=== PATIENT | male | born 1935 | race Caucasian/White ===

== ENCOUNTER 2017-10-02 09:09 | Outpatient (CLI) | payer OTHER ==
[2013-03-10 12:41] VITALS: BP 135/64
[2017-10-02 09:58] LABS: eGFR (African) > 60; eGFR (Non-African) > 60
[2017-10-02 16:40] LABS: T3-UPTAKE 36.1 % (25.4-41.2)
== END 2017-10-02 09:10 ==
LOC: LAB 09:09
PROVIDERS: ATTEND Family Medicine
DX: I10 Essential (primary) hypertension (principal); E78.5 Hyperlipidemia, unspecified; R73.09 Other abnormal glucose; E03.9 Hypothyroidism, unspecified
CPT/HCPCS: 36415; 80053; 80061; 83036; 84436; 84479

== ENCOUNTER 2018-10-15 09:19 | Outpatient (CLI) | payer OTHER ==
[2013-03-10 12:41] VITALS: BP 135/64
[2018-10-15 10:42] LABS: eGFR (Non-African) > 60
== END 2018-10-15 09:20 ==
LOC: LAB 09:19
PROVIDERS: ATTEND Family Medicine
DX: I10 Essential (primary) hypertension (principal); E78.5 Hyperlipidemia, unspecified; E03.9 Hypothyroidism, unspecified; R73.9 Hyperglycemia, unspecified
CPT/HCPCS: 36415; 80053; 80061; 83036; 84439; 84443; 84481

== ENCOUNTER 2019-02-06 15:56 | Inpatient (IN) | payer OTHER ==
[2019-02-06] MEDS ORDERED: IPRATROPIUM/ALBUTEROL SULFATE 3 ML AMPUL.NEB NEB ONE ×2 (16:05→16:06)
[2019-02-06] MEDS ORDERED: methylPREDNISolone SOD SUCC 125 MG/2 ML VIAL IVP ONE (16:08)
[2019-02-06 16:49] LABS: BASOPHILS % 1.4 (0.0-1.5); EOSINOPHILS % 0.7 % (0.0-6.8); MEAN CORPUSCULAR HEMOGLOBIN 31.1 pg (28.0-34.0); MONOCYTES % 8.1 % (0.0-11.0); NEUTROPHILS # 5.4 # k/uL (1.4-7.7)
[2019-02-06 16:56] LABS: eGFR (Non-African) 56
--- NOTE | 2019-02-06 17:06 | ED Physician Documentation ---
General Adult - HISTORIAN Historian: patient - HPI Stated Complaint: resp distress Chief Complaint: Upper Respiratory Symptoms Onset: days ago (4) Timing: still present, worse since Severity: moderate Further Comments: yes (Per daughter he was running a fever Saturday and Sat. Then started to have increasing shortness of air in last 24 hours. She states today he came to her saying his right chest was hurting and he was more short on air and she noticed his fingers to be purple and he was shaking. She does not feel at that time he had a fever. She states he has been not taking his b/p med due to "low" blood pressure since fever. She states he did take the med yesterday and today. He takes a albuterol inhaler as needed and only has issues with his thyroid.) - ROS CONST: fever, weakness EYES/ENT: nasal drainage CVS/RESP: chest pain (right sided ) GI/: none MS/SKIN/LYMPH: none NEURO/PSYCH: denies: headache, fainting, numbness, difficulty with speech - PAST HX Past History: COPD, hypertension Immunizations: UTD Allergies/Adverse Reactions: Allergies Allergy/AdvReac Type Severity Reaction Status Date / Time Tetanus Vaccines and Toxoid Allergy Mild Verified 02/06/19 16:51 [Tetanus] tetanus toxoid, adsorbed Allergy Verified 02/06/19 16:51 Home Medications: Ambulatory Orders Medication Instructions Recorded Aspirin [Jaylen] 81 mg PO QD 03/09/13 - SOCIAL HX Smoking History: non-smoker Alcohol Use: none Drug Use: none - FAMILY HX Family History: Yes (CHF - Mother ) - VITAL SIGNS Vital Signs: Vital Signs Temp Pulse Resp BP Pulse Ox 135/64 03/10/13 12:40 - REVIEWED ASSESSMENTS Nursing Assessment Reviewed: Yes Vitals Reviewed: Yes Progress - Progress Progress: 1615: after non rebreather mask applied decrease in work of breathing. DG 1630: Post neb - decrease work of breathing - he reports a decrease in shortness of air. Non rebreather decreased to 10 DG 1700: continues to state he is feeling better. Pain in chest is improved and he is feeling less short of air. DG 1730: talking in room with daughter. Discussed current findings and plan - they are agreeable DG 1820: discussed case with gas meter installer helper joel Ham [employer] BELT BRANDER will admit DG 1830: Discussed code status and he wants CPR but no mechanical ventilation and daughter has paper and is in charge in the event he cannot say DG ED Results Lab/Radiology - Lab Results Lab Results: Lab Results 02/06/19 02/06/19 02/06/19 16:20 16:20 16:20 WBC 8.00 K/ul K/ul (4.00-12.00) RBC 5.32 M/ul H M/ul (3.90-5.20) Hgb 16.6 g/dL g/dL (12.0-18.0) Hct 50.0 % % (37.0-53.0) MCV 94.0 fl fl (80.0-100.0) MCH 31.1 pg pg (28.0-34.0) MCHC 33.1 g/dL g/dL (30.0-36.0) RDW 13.6 % % (11.3-14.3) Plt Count 177 K/mm3 K/mm3 (130-400) Neut % (Auto) 66.7 % % (39.0-79.0) Lymph % (Auto) 23.1 % % (16.0-50.0) [place] % (Auto) 8.1 % % (0.0-11.0) Eos % (Auto) 0.7 % % (0.0-6.8) Baso % (Auto) 1.4 (0.0-1.5) Neut # (Auto) 5.4 # k/uL # k/uL (1.4-7.7) Lymph # (Auto) 1.9 # k/uL # k/uL (0.6-4.0) [place] # (Auto) 0.7 # k/uL # k/uL (0.0-0.9) Eos # (Auto) 0.1 # k/uL # k/uL (0.0-0.6) Baso # (Auto) 0.1 # k/uL # k/uL (0.0-0.5) D-Dimer 3087 ng/mL H ng/mL (6.0-682) Sodium 141 mmol/L mmol/L (136-145) Potassium 4.7 mmol/L mmol/L (3.5-5.1) Chloride 101 mmol/L mmol/L (98-107) Carbon Dioxide 27 mmol/L mmol/L (22-30) BUN 30 mg/dL H mg/dL (9-20) Creatinine 1.29 mg/dL H mg/dL (0.66-1.25) Est GFR ( Amer) > 60 (60 - ) Est GFR (Non-Af Amer) 56 L (60 - ) Glucose 91 mg/dL mg/dL (74-106) Calcium 8.5 mg/dL mg/dL (8.4-10.2) Total Bilirubin 0.6 mg/dL mg/dL (0.2-1.3) AST 45 U/L U/L (15-46) ALT 19 U/L U/L (13-69) Alkaline Phosphatase 119 U/L U/L (38-126) Creatine Kinase 86 U/L U/L (55-170) Troponin I < 0.03 ng/mL L ng/mL (0.03-0.06) NT-Pro-B Natriuret Pep 4642.9 pg/mL H pg/mL (15.0-450.0) Total Protein 7.3 g/dL g/dL (6.3-8.2) Albumin 4.1 g/dL g/dL (3.5-5.0) - Radiology Radiology Impressions: Portable chest History: Short of breath Portable chest dated February 06, 2019 demonstrates cardiomegaly. Pulmonary vascularity is normal. There is no confluent infiltrate or pleural effusion. Impression: Cardiomegaly. No active disease. Electronically signed on Feb 06, 2019 4:59:49 PM [employer] by: Columba Wagner TECHNIQUE: 2.5 mm contiguous axial images of the chest with contrast. Sagittal and coronal reconstructions. FINDINGS: The pulmonary artery is dilated to 3.9 cm. The aortic arch is tortuous and calcified. There is no hilar or mediastinal mass. No pulmonary emboli are identified. A calcified left hilar lymph nodes. Coronary artery calcification is present. The great vessels are calcified. There is a right upper quadrant nodular density possibly adrenal gland measuring 3.4 cm. The heart is enlarged. Lung window show emphysema. Scattered fibrosis is present. There is bilateral bronchitis. A left lower lobe 4 mm nodule is present. Some infiltrate is present in the right middle lobe There is thoracic spondylosis. Kyphosis is present. IMPRESSION: Dilated pulmonary artery possible pulmonary hypertension Centrilobular emphysema. Bilateral bronchitis Pleural based infiltrate in the right middle lobe Bilateral bronchitis 4 mm left lower lobe nodular density Particularly infiltrate in both lungs rightest in the bases Right retroperitoneal 3.4 cm oval density possibly adrenal nodule. CT Abdomen/pelvis is suggested for further evaluation Electronically signed on Feb 06, 2019 6:12:55 PM [employer] by: Twin Guzman - Orders Orders: ED Orders Category Date Time Status Assess pulse oximetry Q1H Care 02/06/19 16:06 Active IV Started NOW Care 02/06/19 16:07 Active CHEST 1VIEW [RAD] Stat Exams 02/06/19 Ordered ARTERIAL BLOOD GAS Stat Lab 02/06/19 16:31 Ordered BLOOD CULTURE Stat Lab 02/06/19 Ordered BNP [NT-proBNP] Stat Lab 02/06/19 16:20 Completed CBC/PLATELET/DIFF Routine Lab 02/06/19 16:20 Completed CMP Routine Lab 02/06/19 16:20 Completed CREATINE KINASE Routine Lab 02/06/19 16:20 Completed D DIMER Stat Lab 02/06/19 16:20 Completed INFLUENZA A&B Stat Lab 02/06/19 16:32 Ordered PT-INR Routine Lab 02/06/19 Ordered TROPONIN I (cTnI) Stat Lab 02/06/19 16:20 Completed Ipratropium/Albuterol Sulfate [Duoneb] Med 02/06/19 16:05 Discontinued 3 ml NEB .STK-MED ONE Ipratropium/Albuterol Sulfate [Duoneb] Med 02/06/19 16:06 Discontinued 3 ml NEB NOW ONE methylPREDNISolone SOD SUCC [Solu-MEDROL] Med 02/06/19 16:08 Discontinued 125 mg IVP NOW ONE EKG WITH COMPARISON Stat Ther 02/06/19 Ordered General Adult Physical Exam - PHYSICAL EXAM GENERAL APPEARANCE: severe distress EENT: ENT inspection normal, dry mucous membranes NECK: normal inspection RESPIRATORY: wheezes, other (resp distress - ) CVS: reg rate & rhythm, heart sounds normal ABDOMEN: soft, normal bowel sounds, no distension BACK: normal inspection, no CVA tenderness SKIN: warm/dry EXTREMITIES: non-tender, normal range of motion, no edema NEURO: oriented X3 Discharge Clincal Impression: Influenza B Pneumonia Qualifiers: Pneumonia type: due to unspecified organism Laterality: right Lung location: lower lobe of lung Qualified Code(s): J18.1 - Lobar pneumonia, unspecified organism CHF (congestive heart failure) Qualifiers: Heart failure type: unspecified Heart failure chronicity: unspecified Qualified Code(s): I50.9 - Heart failure, unspecified Referrals: Beto Orlando MD [Primary Care Provider] - 2 Days Condition: Fair Disposition: 09 ADMITTED INPATIENT Decision to Admit: [id number] Date of Decison to Admit: 02/06/19 Decision Time: 18:29
[2019-02-06] MEDS ORDERED: 0.9 % SODIUM CHLORIDE 1,000 ML IV ONE (18:25)
[2019-02-06] MEDS ORDERED: cefTRIAXone SODIUM 1 GM in 0.9 % SODIUM CHLORIDE(MINIBAG+ 50 ML IV ONE (18:25)
[2019-02-06 20:07] VITALS: BMI 26.5
[2019-02-06] MEDS: IPRATROPIUM/ALBUTEROL SULFATE 3 ML AMPUL.NEB NEB SCH ×2 (22:30→23:02)
[2019-02-06] MEDS ORDERED: AZITHROMYCIN 500 MG VIAL IV ONE (22:43)
[2019-02-06] MEDS ORDERED: 0.9 % SODIUM CHLORIDE 250 ML IV ONE (22:44)
[2019-02-06] MEDS: FUROSEMIDE 20 MG/2 ML VIAL IVP SCH (23:01)
[2019-02-06] MEDS: POTASSIUM CHLORIDE 10 MEQ TABLET.ER PO SCH (23:05)
[2019-02-06] MEDS: 0.9 % SODIUM CHLORIDE 1,000 ML IV SCH (23:05)
[2019-02-06] MEDS: AZITHROMYCIN 500 MG in 0.9 % SODIUM CHLORIDE 250 ML IV SCH (23:06)
[2019-02-07] MEDS: IPRATROPIUM/ALBUTEROL SULFATE 3 ML AMPUL.NEB NEB SCH ×6 (02:09→20:39)
--- NOTE | 2019-02-07 05:33 | Diagnostic Imaging Report ---
MACKENZIE CROW [facility] [address] [facility] [address] [place], [place]. [address] Report Submission Date: Feb 06, 2019 4:59:49 PM [employer] Patient Study Name: LUC TIM Date: Feb 06, 2019 4:06:05 PM [employer] Modality Type: DX Gender: M Description: CHEST 1VIEW : 34 Institution: [facility] Physician: MACKENZIE CROW Portable chest History: Short of breath Portable chest dated February 06, 2019 demonstrates cardiomegaly. Pulmonary vascularity is normal. There is no confluent infiltrate or pleural effusion. Impression: Cardiomegaly. No active disease. Electronically signed on Feb 06, 2019 4:59:49 PM [employer] by: Columba CASTRO
--- NOTE | 2019-02-07 05:34 | Diagnostic Imaging Report ---
MACKENZIE CROW [facility] [address] [facility] [address] [place], [place]. [address] Report Submission Date: Feb 06, 2019 6:12:55 PM CREDIT UNION TELLER Patient Study Name: LUC TIM Date: Feb 06, 2019 5:35:10 PM [employer]EDIT UNION TELLER Modality Type: CT\SR Gender: M Description: CT PE CHEST : 34 Institution: [place] [facility] Physician: MACKENZIE CROW CT chest with contrast Date of study: February 06, 2019 CLINICAL HISTORY: CT CHEST W/ PE PROTOCOL. SOA TODAY AND RT SIDED CP, PT HAD DIFFICULT TIME HOLDING BREATH (Hx) / ITS.REASON Shortness of breath and Right chest pain Note time : 02/06/2019 6:55:37 PM User : Helena Cosme CT CHEST W/ PE PROTOCOL. SOA TODAY AND RT SIDED CP, PT HAD DIFFICULT TIME HOLDING BREATH (DICOM Hx) TECHNIQUE: 2.5 mm contiguous axial images of the chest with contrast. Sagittal and coronal reconstructions. FINDINGS: The pulmonary artery is dilated to 3.9 cm. The aortic arch is tortuous and calcified. There is no hilar or mediastinal mass. No pulmonary emboli are identified. A calcified left hilar lymph nodes. Coronary artery calcification is present. The great vessels are calcified. There is a right upper quadrant nodular density possibly adrenal gland measuring 3.4 cm. The heart is enlarged. Lung window show emphysema. Scattered fibrosis is present. There is bilateral bronchitis. A left lower lobe 4 mm nodule is present. Some infiltrate is present in the right middle lobe There is thoracic spondylosis. Kyphosis is present. IMPRESSION: Dilated pulmonary artery possible pulmonary hypertension Centrilobular emphysema. Bilateral bronchitis Pleural based infiltrate in the right middle lobe Bilateral bronchitis 4 mm left lower lobe nodular density Particularly infiltrate in both lungs rightest in the bases Right retroperitoneal 3.4 cm oval density possibly adrenal nodule. CT Abdomen/pelvis is suggested for further evaluation Electronically signed on Feb 06, 2019 6:12:55 PM CR[employer] UNION TELLER by: Twin CASTRO
[2019-02-07] MEDS ORDERED: LEVOTHYROXINE SODIUM 50 MCG TABLET ONE (06:04)
[2019-02-07] MEDS: methylPREDNISolone SOD SUCC 40 MG/ML VIAL IVP SCH ×3 (06:13→20:22)
[2019-02-07] MEDS: 0.9 % SODIUM CHLORIDE 1,000 ML IV SCH ×2 (06:13→19:58)
[2019-02-07] MEDS: LEVOTHYROXINE SODIUM 100 MCG TABLET PO SCH (06:15)
[2019-02-07 07:18] LABS: eGFR (Non-African) > 60
[2019-02-07 07:19] LABS: BASOPHILS % 0.7 (0.0-1.5); EOSINOPHILS % 0.9 % (0.0-6.8); MEAN CORPUSCULAR HEMOGLOBIN 31.4 pg (28.0-34.0); MONOCYTES % 2.7 % (0.0-11.0); NEUTROPHILS # 5.2 # k/uL (1.4-7.7)
--- NOTE | 2019-02-07 07:53 | History and Physical Report ---
History of Present Illnes - History of Present Illness Reason for Visit: Pneumonia, COPD History of Present Illness: Patient is an 83-year-old male that presented to the ER yesterday evening with severe resp. distress. Per ER provider; "Per daughter he was running a fever Saturday and Sat. Then started to have increasing shortness of air in last 24 hours. She states today he came to her saying his right chest was hurting and he was more short on air and she noticed his fingers to be purple and he was shaking. She does not feel at that time he had a fever. She states he has been not taking his b/p med due to "low" blood pressure since fever. She states he did take the med yesterday and today. He takes a albuterol inhaler as needed and only has issues with his thyroid." I spoke with daughter on the phone and she reiterated what was stated. She stated that he does not receive the flu or pneumonia vaccine. He is independent and even drives. He lives with daughter and son-in-law. This morning talking with patient he states that he is feeling much better than he did yesterday- he states "I thought I was going to - I couldn't breathe". He states that he has been feeling bad off/on for a week but yesterday he had went to [employer] and he said he did not think he was going to make it home. He got home and laid down for awhile- he got up and tried to walk from his room to his kitchen and he got very dizzy and lightheaded- he felt like he could not breathe. He finally let his daughter bring him to the ER. 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) Endocrine: Hypothyroidism - Past Surgical History Past Surgical History: Appendectomy, Cataract Removal, Other (hydrocele, left inguinal repair) - Past Family History Mother Family History: Father Family History: - Past Social History Smoke: <1 pack per day (has not smoke in a week) Alcohol: Rare Drugs: None Lives: With Family Domestic Violence: Negative - Health Maintenance Health Maintenance: denies: Tetanus, Pneumococcal Vaccine Influenza Vaccine: Patient Refused Pneumonia Vaccine: No (Refuses) Resuscitation Status: Resusciation Status Resuscitation Status No Intubation/Mech Vent Review of Systems - Review of Systems Constitutional: Fever, Chills, Weakness Eyes: negative: conjunctivae inflammation, eyelid inflammation ENT: Nose Congestion. negative: Ear Pain, Ear Discharge, Throat Pain Respiratory: Cough, Shortness of Breath, SOB with Excertion Cardiovascular: Light Headedness. negative: Chest Pain Gastrointestinal: negative: Nausea, Vomiting, Abdominal Pain Genitourinary: negative: Dysuria Musculoskeletal: negative: Back Pain Skin: negative: Rash Neurological: Weakness - Medications/Allergies Allergies/Adverse Reactions: Allergies Allergy/AdvReac Type Severity Reaction Status Date / Time Tetanus Vaccines and Toxoid Allergy Mild Verified 02/06/19 16:51 [Tetanus] tetanus toxoid, adsorbed Allergy Verified 02/06/19 16:51 Current Inpatient Medications: Current Inpatient Medications Albuterol/Ipratropium (Duoneb) 3 ml NEB Q4 [facility] Last Admin: 02/07/19 05:13 Dose: 3 ml Aspirin (Jaylen) 81 mg PO DAILY [facility] Furosemide (Lasix) 20 mg IVP QD [facility] Last Admin: 02/06/19 23:01 Dose: 20 mg Azithromycin 500 mg/ Sodium (Chloride) 250 mls @ 125 mls/hr IV Q24H [facility] Stop: 02/16/19 19:59 Last Admin: 02/06/19 23:06 Dose: 125 mls/hr Ceftriaxone Sodium 1 gm/ (Sodium Chloride) 50 mls @ 100 mls/hr IV DAILY [facility] Sodium Chloride (Normal Saline) 1,000 mls @ 80 mls/hr IV Q10H [facility] Last Admin: 02/07/19 06:13 Dose: 80 mls/hr Levothyroxine Sodium (Synthroid) 150 mcg PO 0700 [facility] Last Admin: 02/07/19 06:15 Dose: 150 mcg Methylprednisolone Sodium Succinate (Solu-Medrol) 80 mg IVP Q12 [facility] Last Admin: 02/07/19 06:13 Dose: 80 mg Potassium Chloride (Klor-Con 10) 10 meq PO DAILY [facility] Last Admin: 02/06/19 23:05 Dose: 10 meq Exam - Exam Vital Signs: Vital Signs (72 hours) 02/06/19 02/06/19 02/06/19 16:01 17:01 18:04 Temperature 99.6 F Pulse Rate Pulse Rate [ 78 67 65 Apical] Pulse Rate [ Right] Respiratory 28 H 31 H 28 H Rate Blood Pressure 120/82 132/67 132/60 [Left Arm] Blood Pressure [Right Arm] O2 Sat by Pulse 82 L 100 100 Oximetry 02/06/19 02/06/19 02/06/19 18:06 18:30 18:49 Temperature Pulse Rate 66 Pulse Rate [ 72 Apical] Pulse Rate [ Right] Respiratory 22 Rate Blood Pressure [Left Arm] Blood Pressure [Right Arm] O2 Sat by Pulse 89 L 99 95 Oximetry 02/06/19 02/06/19 02/06/19 19:00 19:45 19:49 Temperature 97.7 F Pulse Rate 70 Pulse Rate [ 66 Apical] Pulse Rate [ 72 Right] Respiratory 23 22 Rate Blood Pressure 145/70 [Left Arm] Blood Pressure 166/93 [Right Arm] O2 Sat by Pulse 95 95 Oximetry 02/06/19 02/06/19 02/06/19 19:59 20:00 20:33 Temperature 97.7 F Pulse Rate 65 64 Pulse Rate [ Apical] Pulse Rate [ 72 Right] Respiratory 22 Rate Blood Pressure [Left Arm] Blood Pressure 166/93 [Right Arm] O2 Sat by Pulse 95 95 Oximetry 02/06/19 02/06/19 02/06/19 20:34 21:00 22:00 Temperature 97.2 F L Pulse Rate Pulse Rate [ Apical] Pulse Rate [ 62 Right] Respiratory 24 Rate Blood Pressure [Left Arm] Blood Pressure 152/93 [Right Arm] O2 Sat by Pulse 95 94 96 Oximetry 02/06/19 02/06/19 02/06/19 22:33 22:34 23:00 Temperature Pulse Rate 71 Pulse Rate [ Apical] Pulse Rate [ Right] Respiratory Rate Blood Pressure [Left Arm] Blood Pressure [Right Arm] O2 Sat by Pulse 96 96 Oximetry 02/06/19 02/07/19 02/07/19 23:59 00:00 00:56 Temperature 97.2 F L Pulse Rate 70 Pulse Rate [ Apical] Pulse Rate [ 62 Right] Respiratory 24 Rate Blood Pressure 145/70 [Left Arm] Blood Pressure 152/93 [Right Arm] O2 Sat by Pulse 97 97 Oximetry 02/07/19 02/07/19 02/07/19 01:54 02:00 02:45 Temperature 96.9 F L Pulse Rate 60 Pulse Rate [ Apical] Pulse Rate [ 68 Right] Respiratory 18 Rate Blood Pressure [Left Arm] Blood Pressure 151/55 [Right Arm] O2 Sat by Pulse 96 95 95 Oximetry 02/07/19 02/07/19 02/07/19 02:47 02:48 03:19 Temperature 96.9 F L Pulse Rate Pulse Rate [ Apical] Pulse Rate [ 68 68 Right] Respiratory 18 18 Rate Blood Pressure 145/70 [Left Arm] Blood Pressure 151/55 [Right Arm] O2 Sat by Pulse 94 Oximetry 02/07/19 02/07/19 02/07/19 03:20 03:21 05:27 Temperature Pulse Rate 76 Pulse Rate [ Apical] Pulse Rate [ Right] Respiratory Rate Blood Pressure [Left Arm] Blood Pressure [Right Arm] O2 Sat by Pulse 94 96 Oximetry 02/07/19 02/07/19 05:28 05:35 Temperature 97.7 F Pulse Rate 65 Pulse Rate [ Apical] Pulse Rate [ 59 L Right] Respiratory 28 H Rate Blood Pressure [Left Arm] Blood Pressure 158/75 [Right Arm] O2 Sat by Pulse 96 Oximetry General: Alert, Oriented to Person, Oriented to Place, Oriented to Time, Cooperative, Moderate distress HEENT: PERRLA, Mouth Mucous membr. moist/[place], Nose Mucous membr. moist/[place] Neck: Normal Range of Motion Carotids: NO bruit Lungs: Respiratory Distress, Accessory Muscle Use, Decreased Air Movement Cardiovascular: Regular rate, Normal S1, Normal S2 Peripheral Edema: NOne Peripheral Pulses: 2+ Abdomen: Normal bowel sounds, Soft, No tenderness Integumentary: Warm, Dry, Pale Extremities: No edema, Normal pulses, No tenderness/swelling Neurological: Normal speech, Strength Equal Bilat, Sensation intact Psych/Mental Status: Mental status NL, Mood NL, Appropriate Affect (Very pleasant) - Laboratory Results Laboratory Results: Laboratory Results 02/06/19 02/06/19 02/06/19 16:20 16:20 16:20 WBC 8.00 RBC 5.32 H Hgb 16.6 Hct 50.0 MCV 94.0 MCH 31.1 MCHC 33.1 RDW 13.6 Plt Count 177 Neut % (Auto) 66.7 Lymph % (Auto) 23.1 [place] % (Auto) 8.1 Eos % (Auto) 0.7 Baso % (Auto) 1.4 Neut # (Auto) 5.4 Lymph # (Auto) 1.9 [place] # (Auto) 0.7 Eos # (Auto) 0.1 Baso # (Auto) 0.1 PT INR D-Dimer 3087 H Sodium 141 Potassium 4.7 Chloride 101 Carbon Dioxide 27 BUN 30 H Creatinine 1.29 H Estimated Creat Clear Est GFR ( Amer) > 60 Est GFR (Non-Af Amer) 56 L Glucose 91 Calcium 8.5 Total Bilirubin 0.6 AST 45 ALT 19 Alkaline Phosphatase 119 Creatine Kinase 86 Troponin I < 0.03 L NT-Pro-B Natriuret Pep 4642.9 H Total Protein 7.3 Albumin 4.1 Influenza A (Rapid) Influenza B (Rapid) 02/06/19 02/06/19 02/07/19 17:02 Unknown 06:00 WBC 6.00 RBC 4.93 Hgb 15.5 Hct 46.0 MCV 93.0 MCH 31.4 MCHC 33.6 RDW 13.5 Plt Count 161 Neut % (Auto) 86.6 H Lymph % (Auto) 9.1 L [place] % (Auto) 2.7 Eos % (Auto) 0.9 Baso % (Auto) 0.7 Neut # (Auto) 5.2 Lymph # (Auto) 0.6 [place] # (Auto) 0.2 Eos # (Auto) 0.1 Baso # (Auto) 0.0 PT 11.0 INR 1.06 D-Dimer Sodium Potassium Chloride Carbon Dioxide BUN Creatinine Estimated Creat Clear Est GFR ( Amer) Est GFR (Non-Af Amer) Glucose Calcium Total Bilirubin AST ALT Alkaline Phosphatase Creatine Kinase Troponin I NT-Pro-B Natriuret Pep Total Protein Albumin Influenza A (Rapid) Negative Influenza B (Rapid) Positive H 02/07/19 06:00 WBC RBC Hgb Hct MCV MCH MCHC RDW Plt Count Neut % (Auto) Lymph % (Auto) [place] % (Auto) Eos % (Auto) Baso % (Auto) Neut # (Auto) Lymph # (Auto) [place] # (Auto) Eos # (Auto) Baso # (Auto) PT INR D-Dimer Sodium 136 Potassium 4.3 Chloride 101 Carbon Dioxide 26 BUN 23 H Creatinine 0.99 Estimated Creat Clear 51 Est GFR ( Amer) > 60 Est GFR (Non-Af Amer) > 60 Glucose 137 H Calcium 8.1 L Total Bilirubin 0.5 AST 39 ALT 24 Alkaline Phosphatase 124 Creatine Kinase Troponin I NT-Pro-B Natriuret Pep Total Protein 6.9 Albumin 3.8 Influenza A (Rapid) Influenza B (Rapid) Assessment/Plan - Assessment/Plan (1) CHF (congestive heart failure) Status: Acute Current Visit: Yes Qualifiers: Heart failure type: unspecified Heart failure chronicity: unspecified Qualified Code(s): I50.9 - Heart failure, unspecified Assessment: Patient is still extremely short of breath with exertion- he is able to communicate but gets easily short of breath- breath sounds are present but very tight Plan: Will continue with breathing treatment, IV lasix, and monitor for crackles in lungs & edema to extremities. Monitor I & Os (2) Influenza B Status: Acute Current Visit: Yes Plan: Will continue with isolation- he will use incentive spirometry, breathing treatments and oxygen- provide healthy oral nutrition (3) Pneumonia Status: Acute Current Visit: Yes Qualifiers: Pneumonia type: due to unspecified organism Laterality: right Lung location: lower lobe of lung Qualified Code(s): J18.1 - Lobar pneumonia, unspecified organism Assessment: Patient is still adjusting from NRB to NC- if he exerts at all he gets very tachypneic and requires NRB- if he is resting we are able to wean him down to a NC- He is receiving treatment for pneumonia with 2 IV antibiotics, HFN treatments scheduled. Plan: Will continue with antibiotic therapy, breathing treatments, titration of oxygen, and use of incentive spirometry (4) COPD (chronic obstructive pulmonary disease) Status: Acute Current Visit: Yes Qualifiers: COPD type: COPD with acute exacerbation Qualified Code(s): J44.1 - Chronic obstructive pulmonary disease with (acute) exacerbation Assessment: Patient very dyspneic with any exertion. lungs are tight throughout, trying to maintain Oxygen around 90% Plan: Will give IV steroids, breathing treatments VTE Assessment - RISK FACTOR SCORE VTE RISK FACTOR SCORES: AGE OVER 60 YEARS, ACUTE INFECTION OTHER THEN SEPSIS, ACUTE RESPIRATORY FAILURE/SEVERE COPD, SMOKER - RISK VTE HIGH RISK: SCORE OF 3-4 (RISK PROXIMAL DVT 4-8%) PROPHYLAXIS NEEDED
[2019-02-07] MEDS ORDERED: 0.9 % SODIUM CHLORIDE(MINIBAG+ 50 ML IV ONE (08:04)
[2019-02-07] MEDS ORDERED: cefTRIAXone SODIUM 1 GM INJ ONE (08:04)
[2019-02-07] MEDS: cefTRIAXone SODIUM 1 GM in 0.9 % SODIUM CHLORIDE(MINIBAG+ 50 ML IV SCH (09:48)
[2019-02-07] MEDS: POTASSIUM CHLORIDE 10 MEQ TABLET.ER PO SCH (09:49)
[2019-02-07] MEDS: ASPIRIN 81 MG CHEW TAB PO SCH (09:49)
[2019-02-07] MEDS: ENOXAPARIN SODIUM 40 MG/0.4 ML DISP.SYRIN SQ SCH (18:03)
[2019-02-07] MEDS: FUROSEMIDE 20 MG/2 ML VIAL IVP SCH (18:03)
[2019-02-07] MEDS ORDERED: 0.9 % SODIUM CHLORIDE 250 ML IV ONE (20:13)
[2019-02-07] MEDS ORDERED: AZITHROMYCIN 500 MG VIAL IV ONE (20:13)
[2019-02-07] MEDS: AZITHROMYCIN 500 MG in 0.9 % SODIUM CHLORIDE 250 ML IV SCH (20:21)
[2019-02-08] MEDS: IPRATROPIUM/ALBUTEROL SULFATE 3 ML AMPUL.NEB NEB SCH ×7 (03:26→21:44)
[2019-02-08] MEDS ORDERED: LEVOTHYROXINE SODIUM 50 MCG TABLET ONE (06:21)
--- NOTE | 2019-02-08 06:22 | Inpatient Progress Note ---
Subjective - Required Recertification Statement I anticipate X number of days because-include discharge plan: 2 - Review of Systems Events since last encounter: Patient appears to be doing better, however, his lung are still very tight and diminished- he has been able to tolerate being titrated from a NRB to NC. We will continue treatment with antibiotics IV x 2, Duonebs every 4 hours, IV steroids, and oxygen- patient gets short of breath with any exertion. General: Fatigue. Denies: Chills, Night Sweats HEENT: Denies: Head Aches, Eye Pain, Ear Pain Pulmonary: Dyspnea, Cough Cardiovascular: Light Headedness (with activity d/t shortness of breath). Denies: Chest Pain, Palpitations Gastrointestinal: Denies: Nausea, Vomiting, Abdominal Pain Genitourinary: Denies: Dysuria Musculoskeletal: Denies: Back Pain Neurological: Weakness Objective - Exam Vitals and I&O: Vital Signs Temp 97.0 F L 02/08/19 05:56 Pulse 92 H 02/08/19 05:56 Resp 24 02/08/19 05:56 BP 156/80 02/08/19 05:56 Pulse Ox 93 02/08/19 05:56 Intake & Output 02/07/19 02/07/19 02/08/19 11:59 23:59 12:59 Intake Total 825 480 Output Total 1050 300 450 Balance -225 180 -450 Weight 65.771 kg 65.771 kg Intake: IV 675 Left Antecubital 675 Oral 150 480 Output: Urine 1050 300 450 Other: Voiding Method Urinal Urinal Urinal # Voids 1 1 2 # Bowel Movements 0 General: Alert, Oriented to Person, Oriented to Place, Oriented to Time, Cooperative, Moderate distress (with breathing with continuous exertion) HEENT: PERRLA, Mouth Mucous membr. moist/[place], Nose Mucous membr. moist/[place] Neck: Supple, +2 carotid pulse wo bruit Lungs: Accessory Muscle Use, Decreased Air Movement Cardiovascular: Regular rate, Normal S1, Normal S2 Abdomen: Normal bowel sounds, Soft Extremities: No edema, Normal pulses Skin: Warm, Dry, Pale Neurological: Normal speech, Strength Equal Bilat, Sensation intact Psych/Mental Status: Mental status NL, Mood NL, Appropriate Affect - Results Results: Laboratory Results WBC 6.00 K/ul (4.00-12.00) 02/07/19 06:00 RBC 4.93 M/ul (3.90-5.20) 02/07/19 06:00 Hgb 15.5 g/dL (12.0-18.0) 02/07/19 06:00 Hct 46.0 % (37.0-53.0) 02/07/19 06:00 MCV 93.0 fl (80.0-100.0) 02/07/19 06:00 MCH 31.4 pg (28.0-34.0) 02/07/19 06:00 MCHC 33.6 g/dL (30.0-36.0) 02/07/19 06:00 RDW 13.5 % (11.3-14.3) 02/07/19 06:00 Plt Count 161 K/mm3 (130-400) 02/07/19 06:00 Neut % (Auto) 86.6 % (39.0-79.0) H 02/07/19 06:00 Lymph % (Auto) 9.1 % (16.0-50.0) L 02/07/19 06:00 [place] % (Auto) 2.7 % (0.0-11.0) 02/07/19 06:00 Eos % (Auto) 0.9 % (0.0-6.8) 02/07/19 06:00 Baso % (Auto) 0.7 (0.0-1.5) 02/07/19 06:00 Neut # (Auto) 5.2 # k/uL (1.4-7.7) 02/07/19 06:00 Lymph # (Auto) 0.6 # k/uL (0.6-4.0) 02/07/19 06:00 [place] # (Auto) 0.2 # k/uL (0.0-0.9) 02/07/19 06:00 Eos # (Auto) 0.1 # k/uL (0.0-0.6) 02/07/19 06:00 Baso # (Auto) 0.0 # k/uL (0.0-0.5) 02/07/19 06:00 PT 11.0 Seconds (8.8-11.9) 02/06/19 Unknown INR 1.06 (0.80-1.10) 02/06/19 Unknown D-Dimer 3087 ng/mL (6.0-682) H 02/06/19 16:20 Sodium 136 mmol/L (136-145) 02/07/19 06:00 Potassium 4.3 mmol/L (3.5-5.1) 02/07/19 06:00 Chloride 101 mmol/L (98-107) 02/07/19 06:00 Carbon Dioxide 26 mmol/L (22-30) 02/07/19 06:00 BUN 23 mg/dL (9-20) H 02/07/19 06:00 Creatinine 0.99 mg/dL (0.66-1.25) 02/07/19 06:00 Estimated Creat Clear 51 02/07/19 06:00 Est GFR ( Amer) > 60 (60-) 02/07/19 06:00 Est GFR (Non-Af Amer) > 60 (60-) 02/07/19 06:00 Glucose 137 mg/dL (74-106) H 02/07/19 06:00 Calcium 8.1 mg/dL (8.4-10.2) L 02/07/19 06:00 Total Bilirubin 0.5 mg/dL (0.2-1.3) 02/07/19 06:00 AST 39 U/L (15-46) 02/07/19 06:00 ALT 24 U/L (13-69) 02/07/19 06:00 Alkaline Phosphatase 124 U/L (38-126) 02/07/19 06:00 Creatine Kinase 86 U/L (55-170) 02/06/19 16:20 Troponin I < 0.03 ng/mL (0.03-0.06) L 02/06/19 16:20 NT-Pro-B Natriuret Pep 4642.9 pg/mL (15.0-450.0) H 02/06/19 16:20 Total Protein 6.9 g/dL (6.3-8.2) 02/07/19 06:00 Albumin 3.8 g/dL (3.5-5.0) 02/07/19 06:00 Influenza A (Rapid) Negative (NEGATIVE) 02/06/19 17:02 Influenza B (Rapid) Positive (NEGATIVE) H 02/06/19 17:02 Assessment/Plan - Assessment/Plan (1) CHF (congestive heart failure) Status: Acute Current Visit: Yes Qualifiers: Heart failure type: unspecified Heart failure chronicity: unspecified Qualified Code(s): I50.9 - Heart failure, unspecified Assessment: Patient is still extremely short of breath with exertion- he is able to communicate but gets easily short of breath- breath sounds are present but very tight Plan: Will continue with breathing treatment, IV lasix, and monitor for crackles in lungs & edema to extremities. Monitor I & Os (2) Influenza B Status: Acute Current Visit: Yes Plan: Will continue with isolation- he will use incentive spirometry, breathing treatments and oxygen- provide healthy oral nutrition (3) Pneumonia Status: Acute Current Visit: Yes Qualifiers: Pneumonia type: due to unspecified organism Laterality: right Lung location: lower lobe of lung Qualified Code(s): J18.1 - Lobar pneumonia, unspecified organism Assessment: Patient is still adjusting from NRB to NC- if he exerts at all he gets very tachypneic and requires NRB- if he is resting we are able to wean him down to a NC- He is receiving treatment for pneumonia with 2 IV antibiotics, HFN treatments scheduled. Plan: Will continue with antibiotic therapy, breathing treatments, titration of oxygen, and use of incentive spirometry (4) COPD (chronic obstructive pulmonary disease) Status: Acute Current Visit: Yes Qualifiers: COPD type: COPD with acute exacerbation Qualified Code(s): J44.1 - Chronic obstructive pulmonary disease with (acute) exacerbation Assessment: Patient very dyspneic with any exertion. lungs are tight throughout, trying to maintain Oxygen around 90% Plan: Will give IV steroids, breathing treatments
[2019-02-08] MEDS: 0.9 % SODIUM CHLORIDE 1,000 ML IV SCH ×3 (06:31→21:30)
[2019-02-08] MEDS: LEVOTHYROXINE SODIUM 100 MCG TABLET PO SCH (06:32)
[2019-02-08 07:34] LABS: BASOPHILS % 0.6 (0.0-1.5); EOSINOPHILS % 0.9 % (0.0-6.8); MEAN CORPUSCULAR HEMOGLOBIN 31.6 pg (28.0-34.0); NEUTROPHILS # 9.6 # k/uL (1.4-7.7)
[2019-02-08 07:39] LABS: eGFR (Non-African) > 60
--- NOTE | 2019-02-08 07:47 | Diagnostic Imaging Report ---
JAGJIT CAMILO [facility] [id number] [facility] [address] [address] Report Submission Date: Feb 08, 2019 7:31:42 AM CDT Patient Study Name: LUC TIM Date: Feb 08, 2019 6:49:21 AM CDT Modality Type: DX Gender: M Description: CHEST 2VIEW : 33 Institution: [facility] Physician: JAGJIT CAMILO Chest AP portable Date of Exam: February 08, 2019. History: SHORT OF BREATH, PNEUMONIA, CHF (Hx) Findings: Comparison with February 06, 2019 again demonstrates cardiomegaly and prominence of the aortic arch contour. Chronic emphysematous changes are again evident. There are patchy right lung infiltrates. The pulmonary vascularity is stable. Scattered lung granulomata are again noted. Impression: Cardiomegaly and patchy right lung infiltrates. Electronically signed on Feb 08, 2019 7:31:42 AM CDT by: Raymundo CASTRO
[2019-02-08] MEDS ORDERED: ASPIRIN EC 81 MG TABLET.DR PO ONE (08:10)
[2019-02-08] MEDS: ASPIRIN 81 MG CHEW TAB PO SCH (08:49)
[2019-02-08] MEDS: ENOXAPARIN SODIUM 40 MG/0.4 ML DISP.SYRIN SQ SCH (08:49)
[2019-02-08] MEDS: POTASSIUM CHLORIDE 10 MEQ TABLET.ER PO SCH (08:50)
[2019-02-08] MEDS ORDERED: cefTRIAXone SODIUM 1 GM INJ ONE (09:34)
[2019-02-08] MEDS ORDERED: 0.9 % SODIUM CHLORIDE 50 ML IV ONE (09:34)
[2019-02-08] MEDS: FUROSEMIDE 20 MG/2 ML VIAL IVP SCH (09:53)
[2019-02-08] MEDS: methylPREDNISolone SOD SUCC 40 MG/ML VIAL IVP SCH ×2 (09:54→21:32)
[2019-02-08] MEDS: cefTRIAXone SODIUM 1 GM in 0.9 % SODIUM CHLORIDE(MINIBAG+ 50 ML IV SCH (09:54)
[2019-02-08] MEDS ORDERED: AZITHROMYCIN 500 MG VIAL IV ONE (21:21)
[2019-02-08] MEDS ORDERED: 0.9 % SODIUM CHLORIDE 250 ML IV ONE (21:21)
[2019-02-08] MEDS: AZITHROMYCIN 500 MG in 0.9 % SODIUM CHLORIDE 250 ML IV SCH (21:31)
[2019-02-09] MEDS: IPRATROPIUM/ALBUTEROL SULFATE 3 ML AMPUL.NEB NEB SCH ×6 (02:13→20:41)
[2019-02-09] MEDS ORDERED: LEVOTHYROXINE SODIUM 50 MCG TABLET ONE ×2 (06:06→19:18)
[2019-02-09] MEDS: LEVOTHYROXINE SODIUM 100 MCG TABLET PO SCH (06:10)
[2019-02-09] MEDS: 0.9 % SODIUM CHLORIDE 1,000 ML IV SCH ×2 (06:16→20:12)
--- NOTE | 2019-02-09 08:15 | Inpatient Progress Note ---
Subjective - Required Recertification Statement I anticipate X number of days because-include discharge plan: 1 - Review of Systems Events since last encounter: Upon entering room patient is sitting up to side of bed- doing much better- still requiring supplemental oxygen. He is still getting short of breath with minimal exertion. I don't feel that patient is well enough to go home. Will get a PT/OT evaluation to see if patient would qualify for SNF care. General: Fatigue HEENT: Denies: Eye Pain, Ear Pain, Sore Throat Pulmonary: Dyspnea, Cough Cardiovascular: Denies: Chest Pain, Palpitations Gastrointestinal: Denies: Nausea, Vomiting, Abdominal Pain Genitourinary: Denies: Dysuria Musculoskeletal: Back Pain (tired of being in room) Neurological: Weakness Objective - Exam Vitals and I&O: Vital Signs Temp 97.2 F L 02/09/19 05:57 Pulse 78 02/09/19 07:00 Resp 20 02/09/19 07:33 BP 171/82 02/09/19 05:57 Pulse Ox 96 02/09/19 07:00 Intake & Output 02/08/19 02/08/19 02/09/19 11:59 23:59 11:59 Intake Total 440 1060 Output Total 725 250 Balance -285 810 Weight 61.377 kg Intake: IV 960 Left Antecubital 960 Oral 440 100 Output: Urine 725 250 Other: Voiding Method Urinal Urinal # Voids 3 General: Alert, Oriented to Person, Oriented to Place, Oriented to Time, Cooperative, Moderate distress (with breathing) HEENT: PERRLA, Mouth Mucous membr. moist/[place], Nose Mucous membr. moist/[place] Neck: Supple, +2 carotid pulse wo bruit Lungs: Speaks full Sentences, Accessory Muscle Use, Decreased Air Movement, Chest Wall Tenderness Cardiovascular: Regular rate, Normal S1 Abdomen: Normal bowel sounds, Soft Extremities: No edema, Normal pulses, No tenderness/swelling Skin: Warm, Dry, Pale Neurological: Normal speech, Strength Equal Bilat, Sensation intact, Generalized Weakness Psych/Mental Status: Mental status NL, Mood NL, Appropriate Affect, Intact Judgment - Results Results: Laboratory Results WBC 10.90 K/ul (4.00-12.00) 02/08/19 05:23 RBC 4.85 M/ul (3.90-5.20) 02/08/19 05:23 Hgb 15.3 g/dL (12.0-18.0) 02/08/19 05:23 Hct 45.5 % (37.0-53.0) 02/08/19 05:23 MCV 94.0 fl (80.0-100.0) 02/08/19 05:23 MCH 31.6 pg (28.0-34.0) 02/08/19 05:23 MCHC 33.6 g/dL (30.0-36.0) 02/08/19 05:23 RDW 14.4 % (11.3-14.3) H 02/08/19 05:23 Plt Count 227 K/mm3 (130-400) 02/08/19 05:23 Neut % (Auto) 87.7 % (39.0-79.0) H 02/08/19 05:23 Lymph % (Auto) 6.8 % (16.0-50.0) L 02/08/19 05:23 [place] % (Auto) 4.0 % (0.0-11.0) 02/08/19 05:23 Eos % (Auto) 0.9 % (0.0-6.8) 02/08/19 05:23 Baso % (Auto) 0.6 (0.0-1.5) 02/08/19 05:23 Neut # (Auto) 9.6 # k/uL (1.4-7.7) H 02/08/19 05:23 Lymph # (Auto) 0.7 # k/uL (0.6-4.0) 02/08/19 05:23 [place] # (Auto) 0.4 # k/uL (0.0-0.9) 02/08/19 05:23 Eos # (Auto) 0.1 # k/uL (0.0-0.6) 02/08/19 05:23 Baso # (Auto) 0.1 # k/uL (0.0-0.5) 02/08/19 05:23 PT 11.0 Seconds (8.8-11.9) 02/06/19 Unknown INR 1.06 (0.80-1.10) 02/06/19 Unknown D-Dimer 3087 ng/mL (6.0-682) H 02/06/19 16:20 Sodium 137 mmol/L (136-145) 02/08/19 05:23 Potassium 4.5 mmol/L (3.5-5.1) 02/08/19 05:23 Chloride 101 mmol/L (98-107) 02/08/19 05:23 Carbon Dioxide 30 mmol/L (22-30) 02/08/19 05:23 BUN 23 mg/dL (9-20) H 02/08/19 05:23 Creatinine 0.96 mg/dL (0.66-1.25) 02/08/19 05:23 Estimated Creat Clear 53 02/08/19 05:23 Est GFR ( Amer) > 60 (60-) 02/08/19 05:23 Est GFR (Non-Af Amer) > 60 (60-) 02/08/19 05:23 Glucose 137 mg/dL (74-106) H 02/08/19 05:23 Calcium 8.4 mg/dL (8.4-10.2) 02/08/19 05:23 Total Bilirubin 0.5 mg/dL (0.2-1.3) 02/08/19 05:23 AST 58 U/L (15-46) H 02/08/19 05:23 ALT 30 U/L (13-69) 02/08/19 05:23 Alkaline Phosphatase 121 U/L (38-126) 02/08/19 05:23 Creatine Kinase 86 U/L (55-170) 02/06/19 16:20 Troponin I < 0.03 ng/mL (0.03-0.06) L 02/06/19 16:20 NT-Pro-B Natriuret Pep 8186.4 pg/mL (15.0-450.0) H 02/08/19 05:23 Total Protein 7.1 g/dL (6.3-8.2) 02/08/19 05:23 Albumin 3.9 g/dL (3.5-5.0) 02/08/19 05:23 Influenza A (Rapid) Negative (NEGATIVE) 02/06/19 17:02 Influenza B (Rapid) Positive (NEGATIVE) H 02/06/19 17:02 Assessment/Plan - Assessment/Plan (1) CHF (congestive heart failure) Status: Acute Current Visit: Yes Qualifiers: Heart failure type: unspecified Heart failure chronicity: unspecified Qualified Code(s): I50.9 - Heart failure, unspecified Assessment: Patient is still extremely short of breath with exertion- he is able to communicate but gets easily short of breath- breath sounds are present but very tight Plan: Will continue with breathing treatment, IV lasix, and monitor for crackles in lungs & edema to extremities. Monitor I & Os (2) Influenza B Status: Acute Current Visit: Yes Plan: Will take patient off precautions (3) Pneumonia Status: Acute Current Visit: Yes Qualifiers: Pneumonia type: due to unspecified organism Laterality: right Lung location: lower lobe of lung Qualified Code(s): J18.1 - Lobar pneumonia, unspecified organism Assessment: Patient is still requiring supplemental oxygen- if he exerts at all he gets very tachypneic- He is receiving treatment for pneumonia with 2 IV antibiotics, HFN treatments scheduled. Plan: Will continue with antibiotic therapy, breathing treatments, titration of oxygen, and use of incentive spirometry (4) COPD (chronic obstructive pulmonary disease) Status: Acute Current Visit: Yes Qualifiers: COPD type: COPD with acute exacerbation Qualified Code(s): J44.1 - Chronic obstructive pulmonary disease with (acute) exacerbation Assessment: Patient very dyspneic with any exertion. lungs are tight throughout, trying to maintain Oxygen around 90% Plan: Will give IV steroids, breathing treatments
--- NOTE | 2019-02-09 08:54 | Diagnostic Imaging Report ---
JAGJIT CAMILO [facility] [address] [facility] [address] [place] [phone] [phone] Report Submission Date: Feb 09, 2019 8:53:30 AM CDT Patient Study Name: LUC TIM Date: Feb 09, 2019 8:32:05 AM CDT Modality Type: CT Gender: M Description: CT BRAIN W/O CONTRAST : 33 Institution: [facility] Physician: JAGJIT CAMILO EXAMINATION: CT BRAIN W/O CONTRAST HISTORY: SHORT TERM MEMORY LOSS, ALTERED MENTAL STATUS. (Hx) / ITS.REASON short term memory loss/ occasional confusion (DICOM Hx) TECHNIQUE: CT of the head was performed without contrast according to standard protocol. COMPARISON: None FINDINGS: No acute intra- or extra-axial fluid collections are identified. The ventricles are of normal size, shape, and morphology. The basilar cisterns are patent. No mass effect or midline shift is seen. The clancy-white matter differentiation is normal. The carotid siphons are atherosclerotic. Other than bilateral cataract extractions, the visible portions of the orbits, paranasal sinuses, and mastoids appear normal. No acute fracture is identified. IMPRESSION: No acute intracranial process. Electronically signed on Feb 09, 2019 8:53:30 AM CDT by: Ruiz CASTRO
[2019-02-09] MEDS: methylPREDNISolone SOD SUCC 40 MG/ML VIAL IVP SCH ×2 (08:57→20:43)
[2019-02-09] MEDS: cefTRIAXone SODIUM 1 GM in 0.9 % SODIUM CHLORIDE(MINIBAG+ 50 ML IV SCH (08:57)
[2019-02-09] MEDS: POTASSIUM CHLORIDE 10 MEQ TABLET.ER PO SCH (08:59)
[2019-02-09] MEDS: ASPIRIN 81 MG CHEW TAB PO SCH (08:59)
[2019-02-09] MEDS: ENOXAPARIN SODIUM 40 MG/0.4 ML DISP.SYRIN SQ SCH (09:04)
[2019-02-09 15:26] LABS: ABG BASE EXCESS -1.9 (-2 - +2); ABG PH 7.41 (7.35-7.45)
[2019-02-09] MEDS: FUROSEMIDE 20 MG/2 ML VIAL IVP SCH (18:26)
[2019-02-09] MEDS ORDERED: LEVOTHYROXINE SODIUM 100 MCG TABLET ONE (19:20)
[2019-02-09] MEDS: AZITHROMYCIN 500 MG in 0.9 % SODIUM CHLORIDE 250 ML IV SCH (20:43)
[2019-02-10] MEDS: IPRATROPIUM/ALBUTEROL SULFATE 3 ML AMPUL.NEB NEB SCH ×5 (00:51→17:18)
--- NOTE | 2019-02-10 06:58 | Discharge Summary ---
Discharge Summary - Discharge Sumary History of Present Illness: Patient is an 83-year-old male that presented to the ER yesterday evening with severe resp. distress. Per ER provider; "Per daughter he was running a fever Saturday and Sat. Then started to have increasing shortness of air in last 24 hours. She states today he came to her saying his right chest was hurting and he was more short on air and she noticed his fingers to be purple and he was shaking. She does not feel at that time he had a fever. She states he has been not taking his b/p med due to "low" blood pressure since fever. She states he did take the med yesterday and today. He takes a albuterol inhaler as needed and only has issues with his thyroid." I spoke with daughter on the phone and she reiterated what was stated. She stated that he does not receive the flu or pneumonia vaccine. He is independent and even drives. He lives with daughter and son-in-law. This morning talking with patient he states that he is feeling much better than he did yesterday- he states "I thought I was going to - I couldn't breathe". He states that he has been feeling bad off/on for a week but yesterday he had went to [employer] and he said he did not think he was going to make it home. He got home and laid down for awhile- he got up and tried to walk from his room to his kitchen and he got very dizzy and lightheaded- he felt like he could not breathe. He finally let his daughter bring him to the ER. Condition at Discharge: Stable Home Medications: Ambulatory Orders Medication Instructions Recorded RX: Aspirin [Jaylen] 81 mg PO QD 03/09/13 Cefuroxime Axetil [Ceftin] 500 mg PO BID #14 tablet 02/10/19 RX: Azithromycin 250 mg PO D #3 tablet 02/10/19 RX: predniSONE [Deltasone] 10 mg PO DIRECTED #20 tablet 02/10/19 Consultations this Visit: None Procedures this Visit: None Allergies/Adverse Reactions: Allergies Allergy/AdvReac Type Severity Reaction Status Date / Time Tetanus Vaccines and Toxoid Allergy Mild Verified 02/06/19 16:51 [Tetanus] Discharge Summary: Patient is an 83-year-old male who is doing better. He has been cooperative with treatment. He has been able to tolerate oxygen via NC- he has not been up much in his room due to exertional dyspnea. He has been evaluated by therapies and we will move to [facility] patient today- Dr. Orlando has been notified and patient/family are in agreement. Hospital Course: IV antibiotics, IV steroids, IVF, Duonebs every 4 hours, incentive spirometry, SCDs - Final Diagnosis (1) CHF (congestive heart failure) Problems: Patient is still extremely short of breath with exertion- he is able to communicate but gets easily short of breath- breath sounds are present but tight Right or Left: Right (2) Influenza B Problems: Stable Right or Left: Right (3) Pneumonia Problems: Patient is still requiring supplemental oxygen- if he exerts at all he gets very tachypneic- He is receiving treatment for pneumonia with HFN treatments scheduled. Right or Left: Right (4) COPD (chronic obstructive pulmonary disease) Problems: Still requiring supplemental oxygen, HFN txs and steroid treatment Right or Left: Right
[2019-02-10] MEDS ORDERED: LEVOTHYROXINE SODIUM 50 MCG TABLET PO SCH (07:00)
[2019-02-10] MEDS: methylPREDNISolone SOD SUCC 40 MG/ML VIAL IVP SCH (08:26)
[2019-02-10] MEDS: cefTRIAXone SODIUM 1 GM in 0.9 % SODIUM CHLORIDE(MINIBAG+ 50 ML IV SCH (08:50)
[2019-02-10] MEDS: ASPIRIN 81 MG CHEW TAB PO SCH (09:45)
[2019-02-10] MEDS: POTASSIUM CHLORIDE 10 MEQ TABLET.ER PO SCH (09:45)
[2019-02-10] MEDS: ENOXAPARIN SODIUM 40 MG/0.4 ML DISP.SYRIN SQ SCH (09:46)
[2019-02-10 14:00] VITALS: BP 146/82
[2019-02-10] MEDS: 0.9 % SODIUM CHLORIDE 1,000 ML IV SCH (14:25)
== END 2019-02-10 17:10 | DRG 195 ==
LOC: ED 15:56 → SOUTH 18:37
PROVIDERS: ADMIT Nurse Practitioner Family; ATTEND Nurse Practitioner Family
DX: J18.1 Lobar pneumonia, unspecified organism (principal); J44.9 Chronic obstructive pulmonary disease, unspecified; I50.9 Heart failure, unspecified; R53.1 Weakness; F17.210 Nicotine dependence, cigarettes, uncomplicated
CPT/HCPCS: 36600; 70450; 71045; 71046; 71275; 80053; 82550; 82803; 83880; 84484; 85025; 85379; 85610; 87040; 87400; 93005; 94640; 94760; 97116; 97161; 97165; 97535; 99284; 99285; J0456; J0696; J1650; J1940; J2920; J2930; J7030; J7050; Q9967; 99222; 99231; 99232; 99238; J1030; S1016

== ENCOUNTER 2019-10-21 09:39 | Outpatient (CLI) | payer OTHER ==
[2019-02-17 09:14] VITALS: BP 139/66
[2019-10-21 10:42] LABS: eGFR (Non-African) > 60
--- NOTE | 2019-10-21 23:42 | Diagnostic Imaging Report ---
PATIENT MR#: [id number] PATIENT PATIENT NAME: LUC TIM DATE OF : 1935 REFERRING PHYSICIAN: Beto Orlando EXAM DATE: 10/21/2019 ACCESSION NUMBER: [id number] EXAM DESCRIPTION: CT CHEST W/ CONTRAST CLINICAL HISTORY: [employer]BEST[employer] EXPOSURE, PT STATES HE WORKED AN [employer] 25 YEARS AGO AND WAS EXP OSED TO [employer]BE[employer]. TECHNIQUE: CT chest with IV contrast. 90 mL Omnipaque 350 were administered IV. COMPARISON: CT chest February 06, 2019. CT CHEST WITH CONTRAST: Pulmonary arteries: No evidence of pulmonary embolism. Persistent 3.8 cm dilation of the pulmonary tr unk, consistent with pulmonary artery hypertension. Lungs: Upper lobe emphysematous change. Calcified left upper lobe granulomas, stable. Stable appeara nce of noncalcified right lung nodules measuring 5 mm (image 16 and 26). Stable appearance of 1.8 cm left lower lobe nodu le with coarse central calcification. Interval resolution of previously seen nodular infiltrate the right middle lob e. No pneumothorax, infiltrate, or effusion. There are no pleural plaques. Heart: Moderate cardiomegaly. No significant effusion. Aorta: Stable appearance of mild 3.6 cm ectasia of the descending aortic arch, without dissection. Mediastinum and sherie: Calcified left hilar lymph nodes. Bony thorax: No acute findings. Limited upper abdomen: 4 cm reniform structure inferior to the right adrenal gland may represent glenis re renal hypoplasia. IMPRESSION: 1. No pleural plaques to suggest sequelae of asbestos exposure. 2. Moderate cardiomegaly and dilation of the pulmonary vasculature, consistent with pulmonary artery hypertension, similar to prior exam. 3. Centrilobular emphysematous change. 4. Calcified left upper lobe granulomas and calcified left hilar lymph nodes consistent with prior hi story of granulomatous infection. Stable appearance of 1.8 cm left lower lobe perihilar nodule with central ca lcification. 5. Stable appearance of small noncalcified nodules of the right lung. 6. Right renal hypoplasia. Read by: Dr. Julio Cesar Caldera Transcribed by: Julio Cesar Caldera Transcribed Date: 10/21/2019 11:41:44 PM Electronically signed by: Dr. Julio Cesar Caldera Date signed: 10/21/2019 11:42:47 PM
== END 2019-10-21 09:49 ==
LOC: RAD 09:39
PROVIDERS: ATTEND Family Medicine
DX: Z77.090 Contact with and (suspected) exposure to asbestos (principal)
CPT/HCPCS: 36415; 71260; 82565; Q9967